=== PATIENT | male | born 1980 | race Caucasian/White ===

== ENCOUNTER 2018-08-29 09:31 | Emergency (ER) | payer OTHER, SELFPAY ==
[~2018-08-29] VITALS: Ht 185.4 cm; Wt 124.0 kg
[2018-08-29 09:44] VITALS: BP 131/85
--- NOTE | 2018-08-29 10:23 | NUR ---
WE[place]S WITH FEVER STARTED LAST NIGHT
[2018-08-29] MEDS ORDERED: SODIUM CHLORIDE 0.9% 1,000ML IVBOLUS ONE (10:30)
[2018-08-29] MEDS ORDERED: KETOROLAC 30 MG/1 ML IVPush ONE (10:30)
[2018-08-29] MEDS ORDERED: SODIUM CHLORIDE FLUSH 10ML SYR IVF ONE (10:30)
[2018-08-29] MEDS ORDERED: KETOROLAC 30 MG/1 ML ONE (10:36)
[2018-08-29 10:53] LABS: BASOPHILS # (AUTO) 0.01 x10^3/uL (0-0.1); BASOPHILS % (AUTO) 0 % (0-1); EOSINOPHILS # (AUTO) 0.01 x10^3/uL (0-0.4); EOSINOPHILS % (AUTO) 0 % (1-7); LYMPHOCYTES # (AUTO) 0.27 x10^3/uL (1-3.4); LYMPHOCYTES % (AUTO) 6 % (22-44); MD NO; MEAN CORPUSCULAR HEMOGLOBIN 30.4 pg (27.5-34.5); MEAN CORPUSCULAR HGB CONC 34.9 g/dL (33.2-36.2); MEAN CORPUSCULAR VOLUME 87.2 fL (81-97); MEAN PLATELET VOLUME 7.4 fL (7.4-10.4); MONOCYTES # (AUTO) 0.21 x10^3/uL (0.2-0.8); MONOCYTES % (AUTO) 5 % (2-9); NEUTROPHILS # (AUTO) 4.11 x10^3/uL (1.8-6.8); NEUTROPHILS % (AUTO) 89 % (42-75); PLATELET COUNT 162 x10^3/uL (130-400); RED BLOOD COUNT 5.54 x10^6/uL (4.38-5.82); RED CELL DISTRIBUTION WIDTH 12.4 % (9.4-14.8)
[2018-08-29 11:04] LABS: ALBUMIN 4.1 g/dL (3.4-5.0); ANION GAP 9 mmol/L (5-15); CALCIUM 9.2 mg/dL (8.5-10.1); CHLORIDE 103 mmol/L (98-107)
[2018-08-29 11:07] LABS: BILIRUBIN,TOTAL 0.6 mg/dL (0.2-1.0); CREATININE 0.98 mg/dL (0.7-1.3)
[2018-08-29 11:08] LABS: ALANINE AMINOTRANSFERASE 59 U/L (12-78); ALKALINE PHOSPHATASE 69 U/L (45-117); TOTAL PROTEIN 8.1 g/dL (6.4-8.2)
--- NOTE | 2018-08-29 12:24 | NUR ---
RE-EVAL ON RETURN FROM RESTROOM. PT STATES HE IS FEELING BETTER
[2018-08-29 12:35] LABS: MICROSCOPIC NOT IND
[2018-08-29 12:43] LABS: CULTURE INDICATED? NO
== END 2018-08-29 12:26 | disposition home or self-care (01) ==
LOC: ED 12:20
DX: R50.9 Fever, unspecified (principal)
CPT/HCPCS: 36415; 80053; 81003; 83605; 85025; 87040; 96361; 96374; 99283; J1885; J7030